=== PATIENT | male | born 1980 | race Caucasian/White ===

== ENCOUNTER 2025-04-05 10:28 | Emergency (ER) | payer SELFPAY ==
--- NOTE | ~2025-04-05 | XR_ITS ---
EXAMINATION: XR hip LT 2V w AP pelvis DATE: 04/05/2025 11:31 INDICATION: Injury TECHNIQUE: Left hip x-rays were obtained. COMPARISON: None. FINDINGS: Mildly impacted femoral neck fracture with varus angulation noted in the left hip. No other definite fractures identified. Posterior pelvic bones obscured. IMPRESSION: 1. Impacted left femoral neck fracture with varus angulation. No other definite fractures identified. Reviewed, dictated and finalized at location A. NEERING ILLUSTRATOR
--- NOTE | ~2025-04-05 | XR_ITS ---
EXAMINATION: XR chest 2V DATE: 04/05/2025 12:27 INDICATION: Preoperative evaluation post fall with hip fracture TECHNIQUE: AP and lateral views of the chest were obtained. COMPARISON: None FINDINGS: The lungs are clear with no focal airspace opacities, pulmonary edema, pleural effusion or pneumothorax. The cardiomediastinal silhouette is normal. Visualized bones and soft tissues are unremarkable. IMPRESSION: 1. No acute cardiopulmonary disease. Reviewed, dictated and finalized at location A. INSPECTOR
--- NOTE | ~2025-04-05 | XR_ITS ---
EXAMINATION: XR toe 1st RT min 2V, 04/05/2025 12:15 MONTESSORI TODDLER TEACHER HISTORY: fall, injury, PAIN IN 1ST IP, RIGHT TOE COMPARISON: No comparisons available. Findings: There is a nondisplaced fracture proximal aspect of the distal phalanx with intra-articular extension. No significant degenerative changes. Soft tissues unremarkable. Impression: Fractures detailed above Reviewed, dictated and finalized at location P. ESSORI TODDLER TEACHER Impression: Fractures detailed above
[2025-04-05 10:55] VITALS: BP 111/68; PULSE 95; RESP 16; TEMP 36.8; O2SAT 100
--- NOTE | 2025-04-05 11:48 | ED.LOWEXIN ---
HPI - Extremity Injury (Lower) General Chief Complaint: Extremity Injury, Lower <RAYMOND Last Last Filed: 04/05/25 14:20> Stated Complaint: left hip injury <RAYMOND Last Last Filed: 04/05/25 14:20> Time Seen by Provider: 04/05/25 11:15 <RAYMOND Last Last Filed: 04/05/25 14:20> Source: patient <RAYMOND Last Last Filed: 04/05/25 14:20> Mode of arrival: ambulatory <RAYMOND Last Last Filed: 04/05/25 14:20> Limitations: no limitations <RAYMOND Last Last Filed: 04/05/25 14:20> History of Present Illness HPI Narrative: Patient is a 44-year-old male who presents the ED with report of left hip pain. Patient reports he was taking his dog out last night and his dog suddenly ran after another dog nearby. Patient was pulled to the ground while holding his leash. He landed directly on his left hip on concrete. Complains of significant pain to his left hip. Difficulty ambulating. Difficulty bearing any weight. Has not taken anything for pain. Denies numbness. Also reports pain to right 1st toe. Denies head injury or LOC. <Cherelle Dolan PA-C - Last Filed: 04/05/25 14:20> Related Data Allergies/Adverse Reactions: Allergies Allergy/AdvReac Type Severity Reaction Status Date / Time No Known Allergies Allergy Verified 04/05/25 10:59 <Cherelle Dolan PA-C - Last Filed: 04/05/25 14:20> Review of Systems Review of Systems: All systems reviewed & are unremarkable except as noted in HPI. <RAYMOND Last Last Filed: 04/05/25 14:20> All systems reviewed & are unremarkable except as noted in HPI and below <RAYMOND Last Last Filed: 04/05/25 14:20> Exam Narrative: GENERAL: Well appearing, thin, non-toxic, in no acute distress. HEAD: Normocephalic, atraumatic. RESPIRATORY: Airway patent, respirations nonlabored. CARDIOVASCULAR: Regular rate and rhythm without murmurs, rubs, or gallops. Pedal pulses intact and easily palpable MUSCULOSKELETAL: Limited ROM of LLE d/t pain. TTP over lateral L hip joint with contusion present. Sensation intact throughout LLE. Mild swelling/TTP/bruising over R 1st toe IP joint. SKIN: Warm, dry, normal color. NEURO: A&O X3. Speech clear. Cranial nerves II-XII grossly intact. No ataxic movements. PSYCHIATRIC: Appropriate mood and affect. Normal interaction. <Cherelle Dolan PA-C - Last Filed: 04/05/25 14:20> Course TRANSMISSION BUILDER/PA Physician Supervision This visit was performed by both a physician and an Advanced Business Development Director. I performed all aspects of the Medical Decision Making as documented. <Nate Rodríguez MD - Last Filed: 04/05/25 19:06> Vital Signs Vital signs: Vital Signs Temperature 98.2 F 04/05/25 10:55 Pulse Rate 95 04/05/25 10:55 Respiratory Rate 16 04/05/25 10:55 Blood Pressure 111/68 04/05/25 10:55 Pulse Oximetry 100 04/05/25 10:55 Oxygen Delivery Room Air 04/05/25 10:55 Temperature 98.2 F 04/05/25 10:55 Pulse Rate 98 04/05/25 13:30 Respiratory Rate 20 04/05/25 13:30 Blood Pressure 100/68 04/05/25 13:30 Pulse Oximetry 98 04/05/25 13:30 Oxygen Delivery Room Air 04/05/25 10:55 <Cherelle Dolan PA-C - Last Filed: 04/05/25 14:20> Vital Signs Temperature 98.2 F 04/05/25 10:55 Pulse Rate 95 04/05/25 10:55 Respiratory Rate 16 04/05/25 10:55 Blood Pressure 111/68 04/05/25 10:55 Pulse Oximetry 100 04/05/25 10:55 Oxygen Delivery Room Air 04/05/25 10:55 Temperature 98.2 F 04/05/25 10:55 Pulse Rate 98 04/05/25 13:30 Respiratory Rate 20 04/05/25 13:30 Blood Pressure 100/68 04/05/25 13:30 Pulse Oximetry 98 04/05/25 13:30 Oxygen Delivery Room Air 04/05/25 10:55 <Nate Rodríguez MD - Last Filed: 04/05/25 19:06> [facility] Narrative Medical decision making narrative: Patient presented to ED status post ground level mechanical fall last night, injury to left hip, difficulty bearing weight. Vital signs are stable upon arrival. Patient is neurovascularly intact. XR L hip: Impacted left femoral neck fracture with varus angulation. Consistent with clinical picture and injury. Preop workup initiated Discussed case with Dr. Hammond, orthopedics, reviewed imaging himself, recommended transfer to tertiary care given age w/ hip fx. Patient also w/ pain to R 1st toe, XR does show: nondisplaced fracture proximal aspect of the distal phalanx with intra-articular extension. Patient had toes katie taped, place in post op shoe. Discussed case with [facility], Dr. Hays, EDP, accepted patient to ED for trauma transfer. Patient is in agreement with plan and need for transfer. Arranging EMS transportation. Given pain control in the ED. <Cherelle Dolan PA-C - Last Filed: 04/05/25 14:20> Differential Diagnosis Differential Diagnosis: hip strain, hip contusion, femur fx, pelvic fracture, toe fx <Cherelle Dolan PA-C - Last Filed: 04/05/25 14:20> Medical Records I have reviewed the following patient records and this information was taken into consideration when formulating the assessment and plan.: previous labs, previous ER visits, previous hospitalizations and previous clinic visits <Cherelle Dolan PA-C - Last Filed: 04/05/25 14:20> Lab Data [facility] Lab Attestation statement: I personally reviewed the patient's lab results. <Cherelle Dolan PA-C - Last Filed: 04/05/25 14:20> Result diagrams: 04/05/25 12:46 04/05/25 12:46 <Cherelle Dolan PA-C - Last Filed: 04/05/25 14:20> Labs: Lab Results 04/05/25 Range/Units 12:46 WBC 7.2 (4.5-10.0) K/mm3 RBC 4.20 L (4.6-6.20) M/mm3 Hgb 14.6 (14.0-18.0) g/dL Hct 42.4 (42.0-52.0) % MCV 101.0 H (80-100) fl MCH 34.8 H (26-34) pg MCHC 34.4 (32-36) g/dl RDW 16.2 H (11.5-14.5) % Plt Count 263 (150-375) k/mm3 MPV 9.5 (7.4-10.4) fl Immature Gran % (Auto) 0.3 (0-0.5) % Neut % (Auto) 63.2 (45.5-73.1) % Lymph % (Auto) 22.8 (18.3-44.2) % [place] % (Auto) 12.6 H (2.6-8.5) % Eos % (Auto) 0.3 (0-4.4) % Baso % (Auto) 0.8 (0.2-1.2) % Lymph # (Auto) 1.65 (0.9-3.2) K/mm3 [place] # (Auto) 0.9 H (0.1-0.6) K/mm3 Eos # (Auto) 0.0 (0-0.3) K/mm3 Baso # (Auto) 0.1 (0.0-0.1) K/mm3 Abs Immat Gran (auto) 0.02 (0.00-0.031) K/mm3 Absolute Neuts (auto) 4.6 (1.3-6.7) K/mm3 Absolute Nucleated RBC 0.000 (0.0-0.012) K/mm3 Nucleated RBC % 0.0 (0.0-0.2) % PT 12.9 (11.1-14.7) Seconds INR 1.0 APTT 22.5 (22.3-36.8) Seconds Sodium 136 L (137-145) mmol/L Potassium 4.0 (3.4-5.0) mmol/L Chloride 103 (98-107) mmol/L Carbon Dioxide 22 (22-30) mmol/L Anion Gap 11 (4-12) mmol/L BUN 8 L (9-20) mg/dL Creatinine 0.74 (0.7-1.3) mg/dL Estim Creat Clear Calc 94 ml/min Estimated GFR > 60 (59 - ) Glucose 84 (65-110) mg/dL Calcium 9.5 (8.4-10.2) mg/dL Total Bilirubin 1.5 H (0.2-1.3) mg/dL AST 47 (17-59) U/L ALT 35 (6-50) U/L Alkaline Phosphatase 76 (38-126) U/L Total Protein 7.9 (6.3-8.2) g/dL Albumin 4.8 (3.5-5.1) g/dL <Cherelle Dolan PA-C - Last Filed: 04/05/25 14:20> Lab Results 04/05/25 Range/Units 12:46 WBC 7.2 (4.5-10.0) K/mm3 RBC 4.20 L (4.6-6.20) M/mm3 Hgb 14.6 (14.0-18.0) g/dL Hct 42.4 (42.0-52.0) % MCV 101.0 H (80-100) fl MCH 34.8 H (26-34) pg MCHC 34.4 (32-36) g/dl RDW 16.2 H (11.5-14.5) % Plt Count 263 (150-375) k/mm3 MPV 9.5 (7.4-10.4) fl Immature Gran % (Auto) 0.3 (0-0.5) % Neut % (Auto) 63.2 (45.5-73.1) % Lymph % (Auto) 22.8 (18.3-44.2) % [place] % (Auto) 12.6 H (2.6-8.5) % Eos % (Auto) 0.3 (0-4.4) % Baso % (Auto) 0.8 (0.2-1.2) % Lymph # (Auto) 1.65 (0.9-3.2) K/mm3 [place] # (Auto) 0.9 H (0.1-0.6) K/mm3 Eos # (Auto) 0.0 (0-0.3) K/mm3 Baso # (Auto) 0.1 (0.0-0.1) K/mm3 Abs Immat Gran (auto) 0.02 (0.00-0.031) K/mm3 Absolute Neuts (auto) 4.6 (1.3-6.7) K/mm3 Absolute Nucleated RBC 0.000 (0.0-0.012) K/mm3 Nucleated RBC % 0.0 (0.0-0.2) % PT 12.9 (11.1-14.7) Seconds INR 1.0 APTT 22.5 (22.3-36.8) Seconds Sodium 136 L (137-145) mmol/L Potassium 4.0 (3.4-5.0) mmol/L Chloride 103 (98-107) mmol/L Carbon Dioxide 22 (22-30) mmol/L Anion Gap 11 (4-12) mmol/L BUN 8 L (9-20) mg/dL Creatinine 0.74 (0.7-1.3) mg/dL Estim Creat Clear Calc 94 ml/min Estimated GFR > 60 (59 - ) Glucose 84 (65-110) mg/dL Calcium 9.5 (8.4-10.2) mg/dL Total Bilirubin 1.5 H (0.2-1.3) mg/dL AST 47 (17-59) U/L ALT 35 (6-50) U/L Alkaline Phosphatase 76 (38-126) U/L Total Protein 7.9 (6.3-8.2) g/dL Albumin 4.8 (3.5-5.1) g/dL <Nate Rodríguez MD - Last Filed: 04/05/25 19:06> Imaging Data Attestation: I personally reviewed and interpreted this imaging study as follows: <Cherelle Dolan PA-C - Last Filed: 04/05/25 14:20> Radiologist's impression: ITS Impressions Hip/Pelvis X-Ray 04/05/25 11:34 IMPRESSION: 1. Impacted left femoral neck fracture with varus angulation. No other definite fractures identified. Chest X-Ray 04/05/25 12:31 IMPRESSION: 1. No acute cardiopulmonary disease. Toe X-Ray 04/05/25 12:32 Impression: Fractures detailed above <Cherelle Dolan PA-C - Last Filed: 04/05/25 14:20> ITS Impressions Hip/Pelvis X-Ray 04/05/25 11:34 IMPRESSION: 1. Impacted left femoral neck fracture with varus angulation. No other definite fractures identified. Chest X-Ray 04/05/25 12:31 IMPRESSION: 1. No acute cardiopulmonary disease. Toe X-Ray 04/05/25 12:32 Impression: Fractures detailed above <Nate Rodríguez MD - Last Filed: 04/05/25 19:06> ECG Data EKG #1: Attestation: I personally reviewed and interpreted this ECG as follows: <Cherelle Dolan PA-C - Last Filed: 04/05/25 14:20> ECG completion date: 04/05/25 <Cherelle Dolan PA-C - Last Filed: 04/05/25 14:20> ECG completion time: 13:36 <Cherelle Dolan PA-C - Last Filed: 04/05/25 14:20> normal rate (69), sinus rhythm and no ST changes <Cherelle Dolan PA-C - Last Filed: 04/05/25 14:20> Discharge Plan Discharge Clinical Impression: Displaced fracture of left femoral neck, Fracture of distal phalanx of toe of right foot, Fall from ground level <Cherelle Dolan PA-C - Last Filed: 04/05/25 14:20> Patient Disposition: Acute Care Hospital <Cherelle Dolan PA-C - Last Filed: 04/05/25 14:20> Condition: Stable <Cherelle Dolan PA-C - Last Filed: 04/05/25 14:20> Patient Language: Danish <Cherelle Dolan PA-C - Last Filed: 04/05/25 14:20> Follow-up/Referrals: PHYSICIAN,CONFERENCE PLANNING MANAGER [Primary Care Provider, Internal Medicine] <Cherelle Dolan PA-C - Last Filed: 04/05/25 14:20>
--- NOTE | 2025-04-05 12:02 | ECG_ITS ---
Test Date: 2025-04-05 13:36:41 Measurements Intervals [place] Rate: 69 P: 70 ND: 153 QRS: 66 QRSD: 89 T: 71 QT: 381 QTc: 411 Interpretive Statements SINUS RHYTHM POSSIBLE LEFT ATRIAL ENLARGEMENT BASELINE ARTIFACT- I, II, III BORDERLINE ECG No previous ECG available for comparison Electronically Signed On 04-05-2025 13:39:02 RECREATIONAL ASSISTANT by Urbano Rosa D.O.
[2025-04-05] MEDS: HYDROmorphone HCL INJ (*CRX) 1 MG/ML SYR 0.5 MG IV PUSH (12:43)
[2025-04-05 13:07] LABS: Hematocrit 42.4 % (42.0-52.0); Hemoglobin 14.6 g/dL (14.0-18.0); Immature Granulocyte Percent A 0.3 % (0-0.5); Lymphocytes Absolute Auto 1.65 K/mm3 (0.9-3.2); Mean Corpuscular HGB Conc 34.4 g/dl (32-36); Mean Corpuscular Hemoglobin 34.8 pg (26-34); Mean Corpuscular Volume 101.0 fl (80-100); Nucleated Red Blood Cells Absolute Auto 0.000 K/mm3 (0.0-0.012); Nucleated Red Blood Cells Perc 0.0 % (0.0-0.2); Platelet Count Result 263 k/mm3 (150-375); Red Blood Count 4.20 M/mm3 (4.6-6.20); White Blood Count 7.2 K/mm3 (4.5-10.0)
[2025-04-05 13:23] LABS: INR 1.0; Partial Thromboplastin Time 22.5 Seconds (22.3-36.8); Prothrombin Time 12.9 Seconds (11.1-14.7)
[2025-04-05] MEDS: HYDROmorphone HCL INJ (*CRX) 1 MG/ML SYR IV PUSH (13:27)
[2025-04-05 13:30] VITALS: BP 100/68; PULSE 98; RESP 20; O2SAT 98
[2025-04-05 15:45] LABS: Alanine Aminotransferase 35 U/L (6-50); Albumin Level 4.8 g/dL (3.5-5.1); Alkaline Phosphatase 76 U/L (38-126); Anion Gap 11 mmol/L (4-12); Aspartate Amino Transferase 47 U/L (17-59); Bilirubin,Total 1.5 mg/dL (0.2-1.3); Blood Urea Nitrogen 8 mg/dL (9-20); Calcium 9.5 mg/dL (8.4-10.2); Carbon Dioxide 22 mmol/L (22-30); Chloride 103 mmol/L (98-107); Estimated CRCL calculation 94 ml/min; Estimated Glomerular Filt Rate > 60; Glucose 84 mg/dL (65-110); Potassium 4.0 mmol/L (3.4-5.0); Sodium 136 mmol/L (137-145); Total Protein 7.9 g/dL (6.3-8.2)
--- OUTSIDE RECORDS SUMMARY | 2025-04-05 17:01 | XMS_ITS | Clinical Summary ---
Author Organization [facility] Address [address] [place] [address] Phone Care Team Providers Care Sugar Presser Name Role Phone Provider, Unknown Primary Care Provider Unavaila ble Medications No known medications Social History Tobacco Use Types Packs/Day Years Used Date Smoking Tobacco: Unknown Tobacco Cessation:Counseling Given: Not Answered Alcohol Use Standard Drinks/Week Comments Yes 0 (1 standard drink = 0.6 oz pur e alcohol) Sex and Gender Information Value Date Recorded Sex Assigned at Not on file Legal Sex Male 6:00 PM CDT Gender Identity Not on file Sexual Orientation Not on file Last Filed Vital Signs Vital Sign Reading Time Taken Comments Blood Pressure 109/71 07/07/2023 1:31 AM CDT Pulse 70 07/07/2023 1:31 AM CDT Temperature 36.1 C (97 F) 07/06/2023 6:07 PM CDT Respiratory Rate 18 07/07/2023 1:31 AM CDT Oxygen Saturation 98% 07/07/2023 1:31 AM CDT Inhaled Oxygen Concentration - - Weight 60.6 kg (133 lb 11.2 oz) 07/06/2023 6:07 PM CDT Height - - Body Mass Index - - Plan of Treatment Health Maintenance Due Date Last Done Comments Hepatitis C Virus (HCV) Screening 1982 TdaP Immunization 1982 Varicella Immunization (1 of 2 - 13+ 2-dose series) 11/28/1995 Hepatitis B Immunization (1 of 3 - 19+ 3-dose series) 2001 Human Papillomavirus (HPV) Immunization (1 - 3-dose SCDM series) 2009 Influenza Immunization (#1) 2024 SARS-COV-2 Immunization (2 - 2024- season) 2024 11/08/2020 Respiratory Syncytial Virus (RSV) Immunization (Adult) (1 - 1-dose 75+ series) 2057 Meningococcal Immunization (ACWY) Aged Out No longer eligible based on patient's age to complete this topic Pneumococcal Immunization Combined Aged Out No longer eligible based on patient's age to complete this topic Rotavirus Immunization Aged Out No lo nger eligible based on patient's age to complete this topic Care Teams Sugar Presser Relationship Specialty Start Date End Date Provider, Unknown UNKNOWN PCP - General 07/06/23
--- OUTSIDE RECORDS SUMMARY | 2025-04-05 17:01 | XMS_ITS | Clinical Summary ---
Author Organization [facility] Address [address] [place] [address] Care Team Providers Care Skiver Welt End Name Role Phone Unavailable Primary Care Provider Unavailabl e Source Comments [facility],non-owned Affiliates and Associated Physician Practices is amultiple site organization consisting of ambulatory clinics and hospital sitesin [place], [place], [place] and [place]. This disclosure is being madepursuant to the Care Everywhere program and may not contain all information available regarding this patient. 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 Gender Identity Not on file Sexual Orientation Not on file Last Filed Vital Signs Vital Sign Reading Time Taken Comments Blood Pressure 121/98 12/30/2015 6:30 PM CDT Pulse 80 12/30/2015 6:30 PM CDT Temperature 36.4 C (97.6 F) 09/23/2014 11:33 PM CDT Respiratory Rate 16 12/30/2015 5:32 PM CDT Oxygen Saturation 97% 12/30/2015 6:30 PM CDT Inhaled Oxygen Concentration - - Weight 63.5 kg (140 lb) 12/30/2015 5:32 PM CDT Height 175.3 cm (5' 9) 12/30/2015 5:32 PM CDT Body Mass Index 20.67 12/30/2015 5:32 PM CDT Plan of Treatment Health Maintenance Due Date Last Done Comments LIPID TESTING 1982 HIV SCREENING 1997 HEPATITIS C SCREENING 11/22/2000 DTAP/TDAP/TD VACCINES (1 - Tdap) 2001 HEPATITIS B VACCINE (1 of 3 - 19+ 3-dose series) 2001 HPV VACCINE (1 - 3-dose SCDM series) 2009 DEPRESSION SCREENING 04/27/2024 COVID-19 VACCINE (2024-2 6 season) 2024 INFLUENZA VACCINE (#1) 2024 ZOSTER VACCINE (1 of 2) 2032 HIB VACCINE Aged Out No longer eligi ble based on patient's age to complete this topic MENINGOCOCCAL (Group B) VACC INE SHARED DECISION-MAKING Aged Out No longer eligibl e based on patient's age to complete this topic MENINGOCOCCAL GROUPS A/C/Y/W VACCINE Aged Out No longer eligible b ased on patient's age to complete this topic PNEUMOCOCCAL VACCINE Aged Out No long er eligible based on patient's age to complete this topic
== END 2025-04-05 15:05 | disposition short-term general hospital (02) ==
PROVIDERS: Emergency Provider Physician Assistant
DX: S92.421A Displaced fracture of distal phalanx of right great toe, initial encounter for closed fracture (principal); W18.30XA Fall on same level, unspecified, initial encounter
CPT/HCPCS: 36415; 71046; 73502; 73660; 80053; 85025; 85610; 85730; 93005; 96374; 96376; 99285; J1171